=== PATIENT | male | born 1940 | race Caucasian/White ===

== ENCOUNTER 2021-01-12 14:42 | Outpatient (RCR) | payer MEDICARE, SELFPAY | END 2021-01-12 23:59 | LOC: IMMUN 14:42 | PROVIDERS: PCP Student in an Organized Health Care Education/Training Program; Referring Provider Family Medicine; Visit Provider Family Medicine | DX: Z23 Encounter for immunization (principal) | CPT/HCPCS: 0011A; 0012A ==

== ENCOUNTER → 2021-08-13 10:04 | Outpatient (CLI) | payer MEDICARE, SELFPAY ==
[2021-08-13 11:10] LABS: Absolute Lymphocyte Count 1.83 X10^3/uL (0.83-4.51); Absolute Neutrophil Count 2.2 X10^3/uL (2.0-7.7); Basophil# 0.07 X10^3/uL; Basophil% 1.5 % (0-1); Eosinophil# 0.05 X10^3/uL; Hematocrit 38.4 % (40-54); Hemoglobin 12.7 g/dL (13.0-16.5); Lymphocyte # 1.83 X10^3/ul (0.83-4.51); Mean Corp Hgb Conc 33.1 g/dL (32-36); Mean Corpuscular Hgb 32.5 pg (27.0-32.0); Mean Corpuscular Volume 98.2 fL (80-94); Mean Platelet Vol. 10.3 fl (6.2-12.0); Monocyte# 0.67 X10^3/uL; Monocyte% 13.9 % (0-10); NRBC Flagged by Analyzer 0 % (0-5); Neutrophil # 2.17 X10^3/uL (2.7-7.7); Neutrophil % 45.2 % (47-70); Platelet Count 192 K/mm3 (150-450); RBC Distribution Width SD 43.7 fl (35.1-43.9); Red Blood Count 3.91 M/mm3 (4.6-6.2); White Blood Count 4.8 K/mm3 (4.4-11.0)
[2021-08-13 11:28] LABS: Protein, Urine (Random) 10.9 mg/dL (<11.9); Protein:Creat Ratio 60 mg/g CRE (0-200)
[2021-08-13 11:31] LABS: PTHIN 27.4 pg/mL (18.4-80.1)
[2021-08-13 11:46] LABS: Albumin, Serum 3.7 g/dL (3.2-5.0); BUN 19 mg/dL (7-18); BUN/Creat Ratio 15.4 RATIO (10-20); Calcium,Total 9.3 mg/dL (8.5-10.1); Chloride 105 mmol/L (98-107); Creatinine, Serum 1.23 mg/dL (0.70-1.30); EST Glomerular Filtration Rate 60 mL/min (>60); Est Glom Filt Rate - Afr Amer 73 mL/min (>60); Ferritin 520 ng/mL (26-388); Glucose 158 mg/dL (74-106); Iron 92 ug/dL (65-175); Iron Binding Capacity,Total 311 ug/dL (250-450); PERCENT IRON SATURATION 29.6 % (15.0-55.0); Phosphorus 3.4 mg/dL (2.5-4.9); Sodium Level 139 mmol/L (136-145); Uric Acid 4.5 mg/dL (3.5-7.2)
== END ==
PROVIDERS: PCP Student in an Organized Health Care Education/Training Program; Visit Provider Internal Medicine Nephrology
DX: I12.9 Hypertensive chronic kidney disease with stage 1 through stage 4 chronic kidney disease, or unspecified chronic kidney disease (principal); D63.1 Anemia in chronic kidney disease; N18.30 Chronic kidney disease, stage 3 unspecified
CPT/HCPCS: 36415; 80069; 82570; 82728; 83540; 83550; 83970; 84156; 84550; 85025

== ENCOUNTER → 2022-09-16 | Outpatient (CLI) | payer MEDICARE, SELFPAY ==
--- NOTE | 2022-09-16 | IMM_PTH ---
PATIENT: BREANNE PAGAN LOC: [facility] U#:[id number] AGE/SX: 82/M ROOM: RE09/16/[address]: Dr. Willie Veliz MD : 1940 BED: DIS: 09/16/2022 SPEC #: [id number] RECD: 09/18/22 11:50 STATUS: LEXI REQ #: [id number] BEBO: 09/16/22 00:[address]: Willie Veliz DEPT: IMMUNOHISTOCHEMISTRY RECD BY: Bessie Bradford ENTERED: 09/18/22 11:53 SP TYPE: IMMUNO OTHR DR: Dr. Daniel Lewis DO Tissues: A - PROSTATE RIGHT D - PROSTATE LEFT F - PROSTATE LEFT Procedures: 34BE12 (add) P40 (add) 34BE12 (initial) PHYSICIAN & INSTITUTION [place] [id number] SPECIMEN INFORMATION: Tissue Source: A - Right prostate, apex, D - Left prostate, apex, F - Left prostate, base Clinical Info: Elevated PSA Specimen Number: [id number] A, D & F CPT code: 56523, 19155 x5 METHODOLOGY: Deparaffinized sections of prefer/formalin-fixed tissue or PAP/DQ stained slides are incubated with monoclonal/polyclonal antibodies/oligonucleotide probes. Localization is made via biotin free immunoperoxidase method. Appropriate controls are performed and reacted as expected. Results on target cell population are indicated in the following table: RESULTS: ANTIBODY / CLONE RESULT Block A P40 (BC28) positive 34BE12 (34BE12) positive Block D P40 (BC28) positive 34BE12 (34BE12) positive Block F P40 (BC28) positive 34BE12 (34BE12) positive These tests were developed and their performance characteristics determined by [facility]. They may not have been cleared or approved by the U.S. Food and Drug Administration. The FDA has determined that such clearance or approval is not necessary. The above immunohistochemical/dualISH markers are ordered and reviewed by the Pathologist. INTERPRETATION: A. Right prostate, apex, core biopsy: Focal high-grade prostatic intraepithelial neoplasia (HGPIN). D. Left prostate, apex, core biopsy: Focal high-grade prostatic intraepithelial neoplasia (HGPIN). F. Left prostate, base, core biopsy: Focal high-grade prostatic intraepithelial neoplasia (HGPIN). SJ:richard 09/19/2022
--- NOTE | 2022-09-16 08:00 | PROSBIL_PTH ---
PATIENT: BREANNE PAGAN [facility] U[id number] AGE/SX: 82/M ROOM: RE09/16/[address]: Dr. Willie Veliz MD : 1940 BED: DIS: 09/16/2022 SPEC #: [id number] RECD: 09/17/22 08:24 STATUS: LEXI REObinna #: [id number] BEBO: 09/16/22 08:[address]: Willie Veliz DEPT: SURGICAL PATHOLOGY RECD BY: Love Mondragon ENTERED: 09/17/22 08:25 SP TYPE: PROST BX LIDIA DR: Dr. Daniel Lewis DO Tissues: A - PROSTATE RIGHT B - PROSTATE RIGHT C - PROSTATE RIGHT D - PROSTATE LEFT E - PROSTATE LEFT F - PROSTATE LEFT Procedures: PROSTATE BX HEADER OPERATION: Prostate biopsy PRE-OP DIAGNOSIS: Elevated PSA R97.20 TISSUE SUBMITTED: A - Right apex, B - Right mid, C - Right base, D - Left apex, E - Left mid, F - Left base MICROSCOPIC DIAGNOSIS A. Right prostate, apex, core biopsy: Focal high-grade prostatic intraepithelial neoplasia (HGPIN). Focal atrophy. See comment. B. Right prostate, mid, core biopsy: Prostatic adenocarcinoma. Christoval grade: 3+4=7 Number of cores involved: 1/1 Proportion of tissue involved: ~90% Perineural invasion: Not identified. Greatest tumor length: 0.8 cm Focal high-grade prostatic intraepithelial neoplasia (HGPIN). C. Right prostate, base, core biopsy: Prostatic adenocarcinoma. Jamila grade: 3+4=7 Number of cores involved: 1/1 Proportion of tissue involved: 70% Perineural invasion: Not identified. Greatest tumor length: 0.9 cm Focal high-grade prostatic intraepithelial neoplasia (HGPIN). D. Left prostate, apex, core biopsy: Focal high-grade prostatic intraepithelial neoplasia (HGPIN). See comment. E. Left prostate, mid, core biopsy: Prostatic tissue, negative for malignancy. F. Left prostate, base, core biopsy: Focal high-grade prostatic intraepithelial neoplasia (HGPIN). See comment. SJ:rg 09/18/2022 COMMENT A, D & F - Immunohistochemistry ([id number]) supports the above diagnosis. Case has been reviewed in consultation with Dr. Starkey who concurs with the above diagnosis. IDC:AM MICROSCOPIC DESCRIPTION Slides are reviewed. GROSS DESCRIPTION A - Received is one container designated prostate, right apex. The specimen consists of one elongated fragment of light easton-white soft tissue measuring 0.4 cm in length and 0.1 cm in diameter. The specimen is totally submitted in one cassette. B - Received is one container designated prostate, right mid. The specimen consists of one elongated fragment of light easton-white soft tissue measuring 0.9 cm in length and 0.1 cm in diameter. The specimen is totally submitted in one cassette. C - Received is one container designated prostate, right base. The specimen consists of one elongated fragment of light easton-white soft tissue measuring 1.2 cm in length and 0.1 cm in diameter. The specimen is totally submitted in one cassette. D - Received is one container designated prostate, left apex. The specimen consists of one elongated fragment of light easton-white soft tissue measuring 1.3 cm in length and 0.1 cm in diameter. The specimen is totally submitted in one cassette. E - Received is one container designated prostate, left mid. The specimen consists of one elongated fragment of light easton-white soft tissue measuring 2 cm in length and 0.1 cm in diameter. The specimen is totally submitted in one cassette. F - Received is one container designated prostate, left base. The specimen consists of one elongated fragment of light easton-white soft tissue measuring 1.8 cm in length and 0.1 cm in diameter. The specimen is totally submitted in one cassette. / SJ:rg 09/17/2022 TC:0 CPT: G0146
== END | disposition home or self-care (01) ==
LOC: LABSPEC 16:41
PROVIDERS: PCP Student in an Organized Health Care Education/Training Program; Referring Provider Urology; Visit Provider Urology
DX: C61 Malignant neoplasm of prostate (principal); N42.31 Prostatic intraepithelial neoplasia
CPT/HCPCS: 88305; 88341; 88342; G0416

== ENCOUNTER 2022-11-20 05:37 | Day surgery (SDC) | payer MEDICARE, SELFPAY ==
[2022-11-20 06:19] VITALS: BP 143/58; PULSE 62; RESP 18; TEMP 36.3; O2SAT 99; BMI 29.0
[2022-11-20] MEDS: Lactated Ringers 1,000 ML 15 ML IV (06:24)
[2022-11-20] MEDS: Cefazolin 2 GM in 0.9% Normal Saline 100 ML IV (07:28)
--- NOTE | 2022-11-20 07:31 | DCINST_ITS ---
Discharge Instructions Diet Discharge Diet: No restrictions, Light diet - advance as tolerated and Soft diet Activity Discharge Activity: Return to Normal Activity Follow Up Care Please Follow Up With: Willie Veliz MD When: keep next appointment Test Results: Test results from this visit will be discussed in further detail at your follow- up appointment, if applicable. Discharge Plan Admission Attending Provider: Willie Veliz Primary Care Provider: Daniel Lewis Discharge Orders/Prescriptions Prescriptions: No Action amlodipine 5 mg tablet 5 mg PO DAILY atenolol 25 mg tablet 25 mg PO DAILY clopidogrel 75 mg tablet 75 mg PO DAILY Ultra CoQ10 75 mg capsule 75 mg PO DAILY gemfibrozil 600 mg tablet 600 mg PO DAILY ferrous sulfate 325 mg (65 mg iron) tablet 325 mg PO DAILY losartan 100 mg tablet 100 mg PO DAILY omeprazole magnesium [Prilosec OTC] 20 mg tablet,delayed release (DR/EC) 20 mg PO DAILY rosuvastatin 10 mg tablet 10 mg PO DAILY tamsulosin 0.4 mg capsule 0.4 mg PO QHS cholecalciferol (vitamin D3) 10 mcg (400 unit) capsule 10 mcg PO DAILY fexofenadine [Shweta Allergy] 180 mg Tablet 180 mg PO DAILY nirmatrelvir-ritonavir 150-100 mg Tablets,Dose Pack 1 tab PO BID Rx Instructions: take ONE 150 mg tablet of nirmatrelvir with ONE 100 mg tablet of ritonavir twice daily for 5 days Referrals / Follow Up: Daniel Lewis DO [Primary Care Provider] - Disposition Disposition (needs filled in before D/C Order can be placed): Home, Self Care
--- NOTE | 2022-11-20 07:31 | HP.PCM_ITS ---
HPI - General HPI Narrative BREANNE PAGAN, is a 82 M who presents for placement of spacer gel and gold markers for prostate cancer radiation treatment planning FOR[facility]LY [facility], [facility] Medical History (Updated 11/14/22 @ 14:31 by Nasra Casillas) Abnormal pathology report from prostate needle biopsy Arthritis Back pain Benign prostatic hyperplasia with lower urinary tract symptoms Cancer Cardiology follow-up encounter Cataracts, both eyes COVID CPAP (continuous positive airway pressure) dependence Diabetes Dysuria Elevated prostate specific antigen (PSA) Former smoker Gastric reflux Hearing loss History of echocardiogram History of renal disease History of stress test History of ulceration Hypertension Migraine headache Nodular prostate without lower urinary tract symptoms Prostate disease Restless legs Shortness of breath on exertion Skin cancer Syncope TIA (transient ischemic attack) Wears glasses Home Medications amlodipine 5 mg tablet 5 mg PO DAILY 10/02/22 [History Last Taken Unknown] atenolol 25 mg tablet 25 mg PO DAILY 10/02/22 [History Last Taken 11/19/22 22:00] cholecalciferol (vitamin D3) 10 mcg (400 unit) capsule 10 mcg PO DAILY 10/02/22 [History Last Taken Unknown] clopidogrel 75 mg tablet 75 mg PO DAILY 10/02/22 [History Last Taken 11/12/22] coenzyme Q10 75 mg capsule (Ultra CoQ10) 75 mg PO DAILY 10/02/22 [History Last Taken Unknown] ferrous sulfate 325 mg (65 mg iron) tablet 325 mg PO DAILY 10/02/22 [History Last Taken Unknown] gemfibrozil 600 mg tablet 600 mg PO DAILY 10/02/22 [History Last Taken Unknown] losartan 100 mg tablet 100 mg PO DAILY 10/02/22 [History Last Taken Unknown] omeprazole magnesium 20 mg tablet,delayed release (Prilosec OTC) 20 mg PO DAILY 10/02/22 [History Last Taken Unknown] rosuvastatin 10 mg tablet 10 mg PO DAILY 10/02/22 [History Last Taken Unknown] tamsulosin 0.4 mg capsule 0.4 mg PO QHS 10/02/22 [History Last Taken Unknown] fexofenadine 180 mg tablet (Shweta Allergy) 180 mg PO DAILY 11/14/22 [History Last Taken Unknown] nirmatrelvir 150 mg-ritonavir 100 mg tablets in a dose pack (EUA) 1 tab PO BID 11/14/22 [History Last Taken Unknown] Allergy/AdvReac Type Severity Reaction Status Date / Time bee venom protein (honey bee) Allergy Intermediate Swelling Verified 11/20/22 06:17 [bee sting] Family History (Updated 10/07/22 @ 14:39 by Jocelyn Christie) Mother Cancer Heart disease Sister Cancer Brother Heart disease heart attack Father , age 58 Cancer lung 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 Surgical History (Updated 11/14/22 @ 14:31 by Nasra Casillas) H/O knee surgery History of carpal tunnel surgery History of heart surgery Hx of appendectomy Hx of arthroscopy of shoulder Hx of thumb surgery Social History (Updated 10/07/22 @ 14:41 by Jocelyn Christie) household members: spouse Smoking Status: Former smoker Tobacco: How many years used: 15 alcohol intake: never substance use type: does not use Vital Signs Vital Signs Vital Signs: 11/20/22 06:19 11/20/22 06:19 Temperature 97.4 F L Temperature Source Temporal Pulse Rate 62 Respiratory Rate 18 Respiratory Pattern Normal Blood Pressure 143/58 H Blood Pressure Mean 86 Blood Pressure Source Monitor Blood Pressure Position Semi-Fowlers Blood Pressure Location Left Arm Pulse Ox 99 Oxygen Delivery Method Room Air Weight Weight: 89 kg Body Mass Index (BMI) 29.0
--- NOTE | 2022-11-20 07:34 | PCM.OPRPT ---
Report of Operation Pre-Operative Diagnosis: Prostate cancer Post-Operative Diagnosis: Same Surgery/Procedure Performed:: Placement of gold markers and spacer gel Description of Surgical Findings:: In the preoperative area I reviewed with the patient how the procedure is done we talked about the risk of the procedure including the risk of infection, bleeding, migration of the spacer gel, the patient is planning to have radiation to the prostate he understands that the spacer gel has demonstrated benefit in reducing the risk of toxicity from the ration radiation to the rectum but there is no guarantees that this spacer gel will prevent any serious complications or toxicity to the rectum or bowels. After reviewing this with the patient and his family organ to proceed with placement of a spacer gel matrix. The penis and testicles were prepped and draped in usual sterile fashion, ultrasound probe was placed into the rectum and biplanar ultrasound was performed on the prostate. Identified the base mid and apex of the prostate identified the transition zone prostate. Then using a needle the first blocker and polisher gold wheel was placed into the right base of the prostate, the second blocker and polisher gold wheel was placed in the left base of the prostate, and the third core marker was placed in the right apex of the prostate after all 3 markers were placed the placement of the markers were confirmed by ultrasonography I then introduced a biplanar ultrasound probe into the rectum and performed ultrasonography and identified the Denonvilliers' fascia the prostate mid base and apex and seminal vesicles. The spacer gel mix was then prepared on the back table per manufactures instruction. Under ultrasound guidance in the midline perineum a bevel needle down we advanced through the perineum below the prostate into the space of Denonvilliers' fascia. This space which could be identified by ultrasound with a bright white layer between the prostate and the rectum. I then injected a puff of normal saline to identify the space further. After I confirmed that the needle was in the correct space in the mid prostate and the space of Denonvilliers' fascia between the rectum and the prostate. Then over the course of 15 seconds the gel matrix was injected slowly there was nice separation between the prostate and the rectum at the gel matrix was injected. The position of the gel matrix was confirmed by ultrasound. Then the injection needle was removed intact. Patient's perineum was cleaned patient was taken out of stirrups and then taken back to the PACU in good condition. . Surgeon: Willie Veliz Type of Anesthesia: General Drains: none Admit VTE Documentation VTE Present on Admission: No VTE Mechan Device Prophylaxis: SCD's VTE Pharm Prophylaxis ordered?: No
[2022-11-20 08:02] VITALS: BP 121/50; BP 143/58; PULSE 55; RESP 18; TEMP 36.2; O2SAT 99
[2022-11-20 08:05] VITALS: BP 118/57; BP 143/58; PULSE 53; RESP 18; O2SAT 100
[2022-11-20 08:12] VITALS: BP 143/58; BP 151/68; PULSE 54; RESP 18; O2SAT 98
[2022-11-20 08:18] VITALS: BP 143/58; BP 144/59; PULSE 53; RESP 18; TEMP 36.2; O2SAT 99
[2022-11-20 08:53] VITALS: BP 143/58
== END 2022-11-20 09:02 | disposition home or self-care (01) ==
LOC: SDC 05:38 → AC 05:38
PROVIDERS: PCP Student in an Organized Health Care Education/Training Program; Referring Provider Urology; Visit Provider Urology
PROC: (CPT 55874; principal; 2022-11-20 07:15)
DX: C61 Malignant neoplasm of prostate (principal); E11.9 Type 2 diabetes mellitus without complications; Z79.02 Long term (current) use of antithrombotics/antiplatelets; Z87.891 Personal history of nicotine dependence; I10 Essential (primary) hypertension; Z80.1 Family history of malignant neoplasm of trachea, bronchus and lung; Z86.16 Personal history of COVID-19; N40.2 Nodular prostate without lower urinary tract symptoms; Z86.73 Personal history of transient ischemic attack (TIA), and cerebral infarction without residual deficits; R89.7 Abnormal histological findings in specimens from other organs, systems and tissues
CPT/HCPCS: 55876; 00400; J7120

== ENCOUNTER → 2022-12-04 | Outpatient (CLI) | payer MEDICARE, SELFPAY ==
--- NOTE | 2022-12-04 15:28 | MRI_ITS ---
STUDY: MR PELVIS WITH AND WITHOUT CONTRAST (PROSTATE) REASON FOR EXAM: Male, 82 years old. Prostate cancer, staging/disease extent TECHNIQUE: Standardized multiparametric prostate MRI with T1, T2, DWI/ADC sequences were obtained in 3 orthogonal planes, and dynamic contrast enhancement sequences. ml of 18ml clariscan contrast material was administered intravenously for the contrast portion of the examination. . COMPARISON: None. FINDINGS: The prostate volume measures 38 mm3. The contours of the prostate gland are smooth. There is mild mass effect on the bladder base. The transition zone is heterogenous. PI-RADS DWI score 2 - Hypointense within a BPH nodule on ADC. PI-RADS T2W score 2 - A mostly encapsulated nodule OR a homogeneous circumscribed nodule without encapsulation (atypical nodule) or a homogeneous mildly hypointense area between nodules.. Contrast enhancement no early or contemporaneous enhancement; or diffuse multifocal enhancement NOT corresponding to a focal finding on T2W and/or DWI or focal ehancement responding to a lesion demonstrating features of BPH onT2WI (including features of extruded BPH in the PZ). The peripheral zone is heterogenous. PI-RADS DWI score 4 - Focal moderately hypointense on ADC and markedly hyperintense on high b-value DWI; <1.5cm on axial. PI-RADS T2W score 4 - Circumscribed, homogenous moderate hypointense focus/mass confined to prostate and < 1.5 cm in greatest dimension. Contrast enhancement no early or contemporaneous enhancement; or diffuse multifocal enhancement NOT corresponding to a focal finding on T2W and/or DWI or focal enhancement responding to a lesion demonstrating features of BPH onT2WI (including features of extruded BPH in the PZ). Seminal vesicle cysts are identified. No mass lesion or invasion depicted. The rectoprostatic angles are normal. Trabeculated urinary bladder which is small in volume. There are small bladder diverticula. The vascular structures of the are normal. The visualized hollow viscus structures are normal. Small fat-containing bilateral inguinal hernias. No bone marrow edema or mass lesion depicted. MRI/Pelvis W/WO Contrast IMPRESSION: 1. No extraprostatic/pelvic mass/adenopathy. 2. Trabeculated urinary bladder with small diverticula. Electronically Signed: Felix Squires (Brooks), at 7:57 EST Reading Location ID and State: [facility] / [place] , Service support ,
[2022-12-04 16:20] LABS: CREATININE FINGERSTICK 1.2 mg/dL (0.70-1.30); EGFR FINGERSTICK > 60.0000 mL/min (>60)
== END | disposition home or self-care (01) ==
PROVIDERS: PCP Student in an Organized Health Care Education/Training Program; Visit Provider Student in an Organized Health Care Education/Training Program
DX: C61 Malignant neoplasm of prostate (principal); N32.3 Diverticulum of bladder; K57.90 Diverticulosis of intestine, part unspecified, without perforation or abscess without bleeding; K40.20 Bilateral inguinal hernia, without obstruction or gangrene, not specified as recurrent; R19.00 Intra-abdominal and pelvic swelling, mass and lump, unspecified site
CPT/HCPCS: 72197; 77014; 77290; A9575; A4216

== ENCOUNTER → 2024-04-13 | Outpatient (CLI) | payer MEDICARE, SELFPAY ==
[2024-04-13 13:59] LABS: PSA,Total- Diagnostic 0.13 ng/mL (0.0-4.0)
== END | disposition home or self-care (01) ==
LOC: LAB 12:05
PROVIDERS: PCP Student in an Organized Health Care Education/Training Program; Referring Provider Student in an Organized Health Care Education/Training Program; Visit Provider Student in an Organized Health Care Education/Training Program
DX: C61 Malignant neoplasm of prostate (principal)
CPT/HCPCS: 36415; 84153